=== PATIENT | male | born 2000 ===

== ENCOUNTER 2019-05-19 10:46 | Emergency (ER) | payer OTHER ==
[~2019-05-19] VITALS: Ht 180.3 cm; Wt 90.9 kg
[~2019-05-19 10:46] MED LIST: KEPPRA 500MG500 MG PO; KEPPRA1000 MG PO; TRILEPTAL600 MG PO
[2019-05-19 10:48] VITALS: TEMP 97.7
[2019-05-19 11:19] LABS: HEMATOCRIT 43.2 % (42.0-52.0); HEMOGLOBIN 15.2 g/dl (13.5-18.0); MEAN CELL VOLUME 90 fl (80.0-100.0); MEAN CORPUSCULAR HEMOGLOBIN 32 pg (27.0-31.0); MEAN CORPUSCULAR HGB CONC 35 g/dl (33.0-37.0); MEAN PLATELET VOLUME 9.3 fl (7.4-10.4); PLATELET COUNT 281 K/mm3 (130-400); RED BLOOD COUNT 4.79 M/mm3 (4.20-5.60); REDCELL DISTRIBUTION WIDTH-CV 11.4 % (11.5-14.5)
[2019-05-19 11:27] LABS: ALBUMIN 4.7 gm/dL (3.5-5.0); BILIRUBIN,TOTAL 0.1 mg/dL (0.0-1.0); CALCIUM 9.4 mg/dL (8.4-10.2); CREATININE, serum 0.73 (0.66-1.25); POTASSIUM 4.3 mmol/L (3.4-5.0); TOTAL PROTEIN 8.1 gm/dL (6.4-8.2)
[2019-05-19 12:12] LABS: PROLACTIN 48.4 ng/mL (3.7-17.9)
[2019-05-19 12:39] LABS: PLATELET ESTIMATE NORMAL (NORMAL); STOMATOCYTE 1+; TOXIC GRANULATION PRESENT
[2019-05-19 12:58] VITALS: BP 128/84; PULSE 77
[2019-05-19 13:00] LABS: BAND 2 % (0-10); EOSINOPHIL 2 % (0-4)
[2019-05-19 13:01] LABS: LYMPHOCYTE 40 % (20.0-51.0); NEUTROPHILS 46 % (42.0-75.2)
[2019-05-22 08:27] LABS: PATHOLOGY DIFF REVIEW OK
== END 2019-05-19 13:10 | disposition home or self-care (01) ==
LOC: COL.ER 10:46
PROVIDERS: Emergency Medicine
DX: G40.909 Epilepsy, unspecified, not intractable, without status epilepticus (principal)
CPT/HCPCS: J1953